=== PATIENT | male | born 1975 | race Two or more races ===

== ENCOUNTER 2018-12-17 11:07 | Inpatient (IN) | payer MEDICARE, OTHER ==
[~2018-12-17] VITALS: Ht 175.3 cm; Wt 116.6 kg
--- NOTE | 2018-12-17 11:10 | NUR ---
CAME IN FOR L SIDED FACIAL/ L SIDED BODY NUMBNESS SINCE 11AM YESTERDAY. TO ER BED 11, HOOKED TO MONITOR, CHANGED TO HOSPITAL [facility], AWAITING MD SIERRA.
--- NOTE | 2018-12-17 11:39 | NUR ---
DR PAREDES AT BEDSIDE
[2018-12-17 11:57] LABS: BASOPHILS % (AUTO) 0.7 % (0.0-2.0); EOSINOPHILS % (AUTO) 2.3 % (0.0-6.0); HEMATOCRIT 52 % (39-51); HEMOGLOBIN 17.9 g/dL (13.5-17.5); LYMPHOCYTES # (AUTO) 2.5 /CMM (0.8-4.8); LYMPHOCYTES % (AUTO) 35.8 % (20.0-44.0); MEAN CORPUSCULAR HGB CONC 34 g/dl (31.0-36.0); MEAN CORPUSCULAR VOLUME 96 fL (80-96); MONOCYTES # (AUTO) 0.4 /CMM (0.1-1.30); MONOCYTES % (AUTO) 5.8 % (2.0-12.0); NEUTROPHILS # (AUTO) 3.9 /CMM (1.8-8.9); NEUTROPHILS % (AUTO) 55.4 % (43.0-81.0); PLATELET COUNT (AUTO) 207 /CMM (150-450); RED BLOOD CELL COUNT(AUTO) 5.45 MIL/uL (4.5-6.0)
--- NOTE | 2018-12-17 12:02 | NUR ---
CALLED FOR TELE BED
[2018-12-17] MEDS ORDERED: VALS40TA4 PO (12:08)
[2018-12-17] MEDS ORDERED: CANA300T PO (12:08)
[2018-12-17] MEDS ORDERED: ATOR40TA PO (12:08)
[2018-12-17] MEDS ORDERED: INSU100V7 SQ (12:08)
[2018-12-17] MEDS ORDERED: METF-834 PO (12:08)
[2018-12-17] MEDS ORDERED: METO25TA20 PO (12:08)
[2018-12-17 12:14] LABS: CALCIUM, SERUM 8.8 mg/dL (8.5-10.1); CARBON DIOXIDE 26 mmol/L (21-32); CHLORIDE 104 mmol/L (98-107); CREATININE 0.7 mg/dL (0.6-1.3); GLUCOSE 173 mg/dL (74-106); POTASSIUM 4.3 mmol/L (3.5-5.1); SODIUM SERUM 138 mmol/L (136-145); UREA NITROGEN, BLOOD 14 mg/dL (7-18)
[2018-12-17] MEDS ORDERED: IOHEXOL-350 100 ML VIAL IV ONE (12:36)
[2018-12-17] MEDS ORDERED: CT SWABBABLE VALVE TRANS SET 1 EA INFUS.SET MC ONE (12:37)
[2018-12-17] MEDS ORDERED: IV NS 0.9% 250 ML IV ONE (12:37)
--- NOTE | 2018-12-17 12:48 | NUR ---
GOT BED [phone]
--- NOTE | 2018-12-17 13:01 | NUR ---
REPORT GIVEN TO MATTHEW OF TELE UNIT
[2018-12-17 13:24] LABS: CHOLESTEROL 258 mg/dL (<200); HDL CHOLESTEROL 32 mg/dL (40-60); LDL 181 mg/dL (0-99); TRIGLYCERIDES 235 mg/dL (30-150)
--- NOTE | 2018-12-17 13:25 | NUR ---
[facility] PAGED
--- NOTE | 2018-12-17 13:55 | NUR ---
ADMISSION TELE NOTES PATIENT CAME IN STABLE CONDITION, AWAKE ALERT ORIENTED X 4. PATIENT BROUGHT UP TO FLOOR BY MILAN. BREATHING IS EVEN AND UNLABORED. DENIES PAIN, NO ACUTE DISTRESS, NO SOB. IV ON RAC, PATENT AND INTACT. NO REDNESS NO INFILTRATION. SKIN DRY AND INTACT. [facility] ASSESSMENT DONE AND NOTED TO HAVE SLIGHT LEFT SIDED FACIAL WEAKNESS. PATIENT NOTED TO BE AMBULATORY AND BRP. MD NOTIFIED PATIENT WAS ON FLOOR. AWAITING ADMITTING ORDERS. SAFETY PRECAUTIONS IN PLACE. BED IN LOWEST POSITION AND LOCKED, 2 SIDE RAILS UP, AND CALL LIGHT KEPT WITHIN REACH. FAMILY AT BEDSIDE. WILL CONTINUE MONITOR. Addendum: 12/17/18 at 1601 by MT DALY RN PATIENT IS SINUS RHYTHM IN 'S
[2018-12-17 16:00] VITALS: BP 122/78
--- NOTE | 2018-12-17 16:05 | NUR ---
DIAMOND CLEANER NOTES DOCTOR CANDY WAS PAGED AT [id number] REGARDING ADMITTED ORDERS. AWAITING CALL BACK, WILL CONTINUE TO MONITOR.
--- NOTE | 2018-12-17 16:09 | NUR ---
[employer] AIDES TEACHER NOTES CALL BACK WAS RECEIVED FROM DR. SY. STATED HE WILL PUT IN ADMITTING ORDER IN A FEW MINUTES. WILL AWAIT FOR ORDERS. WILL CONTINUE TO MONITOR.
[2018-12-17] MEDS ORDERED: IV NS 0.9% 1,000 ML IV PRN (18:19)
--- NOTE | 2018-12-17 18:24 | NUR ---
CABLE COVERER NOTES CALL BACK RECEIVED FROM DR. SY AGAIN 1819. STATED HE WILL PUT IN ADMITTING ORDER IN A FEW MINUTES. WILL AWAIT FOR ORDERS. WILL CONTINUE TO MONITOR
[2018-12-17] MEDS ORDERED: Z GUARD REMEDY 2 OZ OINT TP PRN (18:30)
[2018-12-17] MEDS ORDERED: MAGNESIUM HYDROXIDE 30 ML UDC PO PRN (18:30)
[2018-12-17] MEDS ORDERED: ACETAMINOPHEN 325 MG TABLET PO PRN (18:30)
[2018-12-17] MEDS ORDERED: ZOLPIDEM TARTRATE 5 MG TABLET PO PRN (18:30)
[2018-12-17] MEDS ORDERED: ONDANSETRON HCL/PF 4 MG/2 ML VIAL IVP PRN (18:30)
[2018-12-17] MEDS ORDERED: HYDROCODONE/APAP 5/325MG 1 EACH TABLET PO PRN (18:30)
[2018-12-17] MEDS ORDERED: MAG HYDROX/AL HYDROX/SIMETH 30 ML UDC PO PRN (18:30)
--- NOTE | 2018-12-17 18:30 | NUR ---
SEA SHELL GATHERER NOTE ORDERS PLACED BY AT THIS TIME, WILL IMPLEMENT AT THIS TIME AND CONTINUE TO MONITOR
--- NOTE | 2018-12-17 18:40 | NUR ---
PULP MILL OPERATOR NOTES PATIENT AWAKE ALERT ORIENTED X 4. PT IS STABLE AND AMBULATORY. BREATHING EVEN AND UNLABORED.DENIES PAIN, NO ACUTE DISTRESS, NO SOB. IV ON RAC IS CLEAN, PATENT, DRY, AND INTACT. SHOWS NO REDNESS, NO INFILTRATION. SAFETY PRECAUTIONS ARE IN PLACE. ALL PATIENT NEEDS MET AND ATTENDED. BED IN LOWEST POSITION, LOCKED. CALL LIGHT KEPT WITHIN REACH. WILL ENDORSE TO VP DESIGN NURSE.
[2018-12-17] MEDS ORDERED: ASPI-1152 PO (19:37)
[2018-12-17] MEDS ORDERED: PRED50TA PO (19:37)
--- NOTE | 2018-12-17 20:00 | NUR ---
MS RN NOTES DR WATKINS CAME IN WITH NEW ORDERS TO D/C PT. PT WANTS TO GO HOME [place]. DISCHARGE INSTRUCTIONS PROVIDED. PRESCRIPTIONS GIVEN TO PT WELL BELONGINGS. UNDERSTOOD D/C INSTRUCTIONS WELL. PER PT, HE DOESN'T WANT THE MRI TO BE DONE BECAUSE HE IS CLAUSTROPHOBIC. WILL HAVE OPEN MRI DONE OUTSIDE AND WILL SEE HIS PMD ELIAS FOR HIS NEURO F/U. FAMILY AT BEDSIDE AWAITING FOR PT'S D/C. WILL CONTINUE TO MONITOR.
--- NOTE | 2018-12-17 20:15 | NUR ---
CFO CONTROLLER NOTES PT LEFT THE FACILITY IN FAIR & STABLE CONDITION. VSS. AFEBRILE. SKIN INTACT. IV-HL D/CD. PT TOLERATED WELL.
[2018-12-17] MEDS ORDERED: ENOXAPARIN SODIUM 40 MG/0.4 ML DISP.SYRIN SQ SCH (21:00)
[2018-12-17] MEDS ORDERED: INSULIN GLARGINE, 100 UNIT/ML CARTRIDGE SQ SCH (22:00)
[2018-12-18] MEDS ORDERED: Medication Not On Formulary EA (Canagliflozin (Invokana) 300 MG) PO SCH (09:00)
[2018-12-18] MEDS ORDERED: VALSARTAN 40 MG TABLET PO SCH (09:00)
[2018-12-18] MEDS ORDERED: METFORMIN XR 500 MG TAB.SR.24H PO SCH (09:00)
[2018-12-18] MEDS ORDERED: METOPROLOL TARTRATE 25 MG TABLET PO SCH (09:00)
[2018-12-18] MEDS ORDERED: ATORVASTATIN 40 MG TABLET PO SCH (18:00)
== END 2018-12-17 20:15 | disposition home or self-care (01) | DRG 69 ==
LOC: ER 11:10 → TELE 12:58
PROVIDERS: ADMIT Hospitalist; ATTEND Hospitalist
DX: G45.9 Transient cerebral ischemic attack, unspecified (principal); E11.9 Type 2 diabetes mellitus without complications; I10 Essential (primary) hypertension; F17.210 Nicotine dependence, cigarettes, uncomplicated; F41.9 Anxiety disorder, unspecified; G51.0 Bell's palsy; E78.5 Hyperlipidemia, unspecified; F40.240 Claustrophobia
CPT/HCPCS: 36415; 70496-TC; 70498-TC; 71045-TC; 80048-TC; 80061-TC; 82962-TC; 84484-TC; 85025-TC; 85730-TC; 87081-TC; G0378; J1650; J1815; J7030; J7050; Q9967